=== PATIENT | male | born 1965 | race African-American/Black ===

== ENCOUNTER 2020-12-06 14:16 | Emergency (ER) | payer SELFPAY ==
[~2020-12-06] VITALS: Ht 185.4 cm; Wt 90.0 kg
--- NOTE | 2020-12-06 14:59 | PHYS DOC ---
Past History Past Medical History: No Pertinent History Past Surgical History: Other Alcohol Use: None General Adult EDM: Chief Complaint: SHORTNESS OF BREATH HPI: HPI: Patient is a 55-year-old male who presents with shortness of breath and right- sided flank pain. Patient states that the pain is worse with deep breathing and with movement. Patient states "I have my brother look at my back and he said it looked like it was swollen on the right side". Patient states "I did have a pretty bad cough prior to this pain starting". Denies taking anything prior to arrival for pain. Denies recent fever or injury. Denies any other medical history. Review of Systems: Review of Systems: Constitutional: Denies fever or chills Eyes: Denies change in visual acuity HENT: Denies nasal congestion or sore throat Respiratory: Denies cough, reports shortness of breath Cardiovascular: Denies chest pain or edema GI: Denies abdominal pain, nausea, vomiting, bloody stools or diarrhea : Denies dysuria Musculoskeletal: Denies back pain or joint pain Integument: Denies rash Neurologic: Denies headache, focal weakness or sensory changes Endocrine: Denies polyuria or polydipsia Lymphatic: Denies swollen glands Psychiatric: Denies depression or anxiety Physical Exam: PE: Constitutional: Well developed, well nourished, no acute distress, non-toxic appearance. [] HENT: Normocephalic, atraumatic, bilateral external ears normal, oropharynx moist, no oral exudates, nose normal. [] Eyes: PERRLA, EOMI, conjunctiva normal, no discharge. [] Neck: Normal range of motion, no tenderness, supple, no stridor. [] Cardiovascular:Heart rate regular rhythm, no murmur [] Lungs & Thorax: Diminished breath sounds Abdomen: Bowel sounds normal, soft, no tenderness, no masses, no pulsatile mass es. [] Skin: Warm, dry, no erythema, no rash. [] Back: No tenderness, right-sided CVA tenderness. [] Extremities: No tenderness, no cyanosis, no clubbing, ROM intact, no edema. [] Neurologic: Alert and oriented X 3, normal motor function, normal sensory function, no focal deficits noted. [] Psychologic: Affect normal, judgement normal, mood normal. [] Current Patient Data: Vital Signs: Vital Signs Date Time Temp Pulse Resp B/P (MAP) Pulse Ox O2 Delivery O2 Flow Rate FiO2 12/06/20 14:25 98.3 90 20 137/100 (112) 97 Room Air EKG: EKG: [] EKG shows normal sinus rhythm. Radiology/Procedures: Radiology/Procedures: []INDICATION: Reason: sob / Spl. Instructions: / History: COMPARISON: None. FINDINGS: Single view of chest obtained. Patchy opacity at the right greater than left lung base. Linear opacity right midlung could be secondary to atelectasis or small amount of fluid in the fissure. Tortuous aortic contour. Partial visualization of air-filled prominent loops of bowel in the left upper quadrant of abdomen. IMPRESSION: * Patchy opacity at right greater than left lung base could be atelectasis or infiltrate. * At the partially visualized upper abdomen there is air-filled distended loops of bowel in the left upper quadrant. This can be better evaluated on the patient's already scheduled CT of the abdomen Electronically signed by: Lakhwinder Mercer MD (12/06/2020 3:26 PM) [id number] CT ABDOMEN+PELVIS WO History: Right-sided flank pain. Comparison: None. Technique: Noncontrast CT of the abdomen and pelvis. Exposure: One or more of the following individualized dose reduction techniques were utilized for this examination: 1. Automated exposure control 2. Adjustment of the mA and/or kV according to patient size 3. Use of iterative reconstruction technique. Findings: Bibasilar atelectatic change. Partially visualized right coronary artery calcification. Trace right pleural effusion. No pericardial effusion. Normal appearance of the liver without masses. Partially decompressed gallbladder is unremarkable. No intra or extrahepatic biliary ductal dilatation. The pancreas, spleen, adrenal glands and kidneys are unremarkable. No hydronephrosis. Normal appearance of the ureters. Normal partially distended bladder contour. Small hiatus hernia. Stomach is distended by ingested material. No wall thickening. No evidence of small bowel obstruction. Normal appendix. Moderate pancolonic diverticulosis without evidence for diverticulitis. No intraperitoneal free air or free fluid. Tortuous aorta with aortoiliac atherosclerosis. No aneurysm. Central prostatic calcifications. No abdominopelvic adenopathy. Healed left lateral ninth and 10th rib fractures. Mild degenerative changes of the lumbar spine. Moderate fat-containing periumbilical hernia measures approximately 3.6 cm. Fat-containing right inguinal hernia. Impression: 1. No acute findings in the abdomen and pelvis. No nephrolithiasis or hydronephrosis. 2. Small right pleural effusion and bibasilar linear opacities which likely represent atelectasis, however superimposed infection cannot be excluded. 3. Small hiatal hernia. 4. Colonic diverticulosis without evidence for diverticulitis. 5. Fat containing periumbilical and right inguinal hernias. Electronically signed by: Patric Valles MD (12/06/2020 3:52 PM) [facility] Exam: CT of chest with contrast INDICATION: Shortness of breath TECHNIQUE: Sequential axial images through the chest obtained following the administration 100 mL of Isovue-370 IV contrast. Sagittal and coronal reformatted images were reconstructed from the axial data and reviewed. 3-D reformatted images were reconstructed from the axial data and reviewed. Comparisons: None FINDINGS: Visualized portions of the thyroid are unremarkable. No enlarged mediastinal lymph nodes are identified. Right size is normal. No pericardial effusion. Thoracic aorta has a normal course and caliber. Pulmonary artery is not enlarged. No pulmonary embolus identified within the main, lobar or segmental pulmonary arteries. Strandy opacities noted at the dependent portion lungs likely representing atelectasis. Airways are patent. No consolidation or pneumothorax. No suspicious lung nodules. No pleural effusion or thickening. Visualized upper abdomen is unremarkable. No suspicious osseous lesions or acute fractures. IMPRESSION: No pulmonary embolus identified within the main, lobar or segmental pulmonary arteries. Exposure: One or more of the following in the visualized dose reduction techniques were utilized for this examination: 1. Automated exposure control 2. Adjustment of the MA and/or KV according to patient size 3. Use of iterative of reconstructive technique Electronically signed by: Amrita Butler MD (12/06/2020 4:57 PM) [facility] Heart Score: Risk Factors: Risk Factors: DM, Current or recent (<one month) smoker, HTN, HLP, family history of CAD, obesity. Risk Scores: Score 0 - 3: 2.5% MACE over next 6 weeks - Discharge Home Score 4 - 6: 20.3% MACE over next 6 weeks - Admit for Clinical Observation Score 7 - 10: 72.7% MACE over next 6 weeks - Early Invasive Strategies Course & Med Decision Making: Course & Med Decision Making Pertinent Labs and Imaging studies reviewed. (See chart for details) []Patient is a 55-year-old male who presents with shortness of breath and right- sided flank pain. Patient states that the pain is worse with deep breathing and with movement. Patient states "I have my brother look at my back and he said it looked like it was swollen on the right side". Patient states "I did have a pretty bad cough prior to this pain starting". Denies taking anything prior to arrival for pain. Denies recent fever or injury. Denies any other medical history. Torodal given for pain. Patient reports pain improved. D-dimer is elevated at 2.23. CTA ordered rule out PE. CTA shows No pulmonary embolus identified within the main, lobar or segmental pulmonary arteries. Chest xray shows Patchy opacity at right greater than left lung base could be atelectasis or infiltrate. Will send patient home with antibiotics to treat pneumonia. Patient to take ibuprofen at home for discomfort. Dragon Disclaimer: Dragon Disclaimer: This electronic medical record was generated, in whole or in part, using a voice recognition dictation system. Departure Departure: Impression: Primary Impression: Pneumonia Qualified Codes: J18.9 - Pneumonia, unspecified organism Disposition: 01 DC HOME SELF CARE/HOMELESS Condition: STABLE Referrals: PCP,NO (PCP) Patient Instructions: Pneumonia, Adult Additional Instructions: EMERGENCY DEPARTMENT GENERAL DISCHARGE INSTRUCTIONS Thank you for coming to [facility] (ED) today and trusting us with you care. We trust that you had a positivie experience in our Emergency Department. If you wish to speak to the department management, you may call the director at [phone]. YOUR FOLLOW UP INSTRUCTIONS ARE FOLLOWS: 1. Do you have a private Doctor? If you do not have a private doctor, please ask for a resource list of physicians or clinics that may be able to assist you with follow up care. 2. The Emergency Physician has interpreted your x-rays. The X-Ray specialist will also review them. If there is a change in the findings, you will be notified in 48 hours when at all possible. 3. A lab test or culture has been done, your results will be reviewed and you will be notified if you need a change in treatment. ADDITIONAL INSTRUCTIONS AND INFORMATION: 1. Your care today has been supervised by a physician who is specially trained in emergency care. Many problems require more than one evaluation for a complete diagnosis and treatment. We recommend that you schedule your follow up appointment as recommended to ensure complete treatment of you illness or injury. If you are unable to obtain follow up care and continue to have a problem, or if your condition worsens, we recommend that you return to the ED. 2. We are not able to safely determine your condition over the phone nor are we able to give sound medical advice over the phone. For these safety reasons, if you call for medical advice we will ask you to come to the ED for further evaluation. 3. If you have any questions regarding these discharge instructions please call the ED at [phone]. SAFETY INFORMATION: In the interest of safety, wellness, and injury prevention; we encourage you to wear your sealbelt, if you smoke; quite smoking, and we encourage family to use a protective helmet for bicycling and other sporting events that present an increased risk for head injury. IF YOUR SYMPTOMS WORSEN OR NEW SYMPTOMS DEVELOP, OR YOU HAVE CONCERNS ABOUT YOUR CONDITION; OR IF YOUR CONDITION WORSENS WHILE YOU ARE WAITING FOR YOUR FOLLOW UP APPOINTMENT; EITHER CONTACT YOUR PRIMARY CARE DOCTOR, THE PHYSICIAN WHOSE NAME AND NUMBER YOU WERE GIVEN, OR RETURN TO THE ED IMMEDIATELY. Scripts Azithromycin (AZITHROMYCIN TABLET) 250 Mg Tablet 1 PKG PO UD for pneumonia for 5 Days, #6 TAB 0 Refills 2 the first day followed by 1 for days 2-5 Prov: VY JAUREGUI APRN 12/06/20 VY JAUREGUI APRN Dec 06, 2020 14:59
[2020-12-06] MEDS ORDERED: KETOROLAC 15 MG/ML VIAL. IVP ONE (15:15)
--- NOTE | 2020-12-06 15:28 | RAD ---
INDICATION: Reason: sob / Spl. Instructions: / History: COMPARISON: None. FINDINGS: Single view of chest obtained. Patchy opacity at the right greater than left lung base. Linear opacity right midlung could be second rayray to atelectasis or small amount of fluid in the fissure. Tortuous aortic contour. Partial visualiz ation of air-filled prominent loops of bowel in the left upper quadrant of abdomen. IMPRESSION: * Patchy opacity at right greater than left lung base could be atelectasis or infiltrate. * At the partially visualized upper abdomen there is air-filled distended loops of bowel in the left upper quadrant. This can be better evaluated on the patient's already scheduled CT of the abdomen Electronically signed by: Lakhwinder Mercer MD (12/06/2020 3:26 PM) [id number]
[2020-12-06 15:36] LABS: BASO % 0 % (0-3); EOS # 0.1 x10^3/uL (0.0-0.7); EOS % 1 % (0-3); HEMATOCRIT 44.5 % (39.0-53.0); HEMOGLOBIN 14.4 g/dL (13.0-17.5); LYMPH # 1.2 x10^3/uL (1.0-4.8); LYMPH % 12 % (24-48); MEAN CORPUSCULAR HEMOGLOBIN 28 pg (25-35); MEAN CORPUSCULAR HGB CONC 32 g/dL (31-37); MEAN CORPUSCULAR VOLUME 86 fL (79-100); MONO # 0.6 x10^3/uL (0.0-1.1); MONO % 6 % (0-9); NEUT # 7.8 x10^3uL (1.8-7.7); NEUT % 80 % (31-73); PLATELET COUNT 311 x10^3/uL (140-400); RED BLOOD COUNT 5.15 x10^6/uL (4.30-5.70); RED CELL DISTRIBUTION WIDTH 15.3 % (11.5-14.5); WHITE BLOOD COUNT 9.8 x10^3/uL (4.0-11.0)
[2020-12-06 15:43] LABS: CALCIUM 8.9 mg/dL (8.5-10.1); GFR 93.9; POTASSIUM 3.4 mmol/L (3.5-5.1)
[2020-12-06 15:49] LABS: ALBUMIN 3.2 g/dL (3.4-5.0); ALBUMIN/GLOBULIN RATIO 0.7 (1.0-1.7); TOTAL BILIRUBIN 0.5 mg/dL (0.2-1.0); TOTAL PROTEIN 7.7 g/dL (6.4-8.2)
--- NOTE | 2020-12-06 15:54 | RAD ---
CT ABDOMEN+PELVIS WO History: Right-sided flank pain. Comparison: None. Technique: Noncontrast CT of the abdomen and pelvis. Exposure: One or more of the following individualized dose reduction techniques were utilized for thi s examination: 1. Automated exposure control 2. Adjustment of the mA and/or kV according to patient size 3. Use of iterative reconstruction technique. Findings: Bibasilar atelectatic change. Partially visualized right coronary artery calcification. Trace right p leural effusion. No pericardial effusion. Normal appearance of the liver without masses. Partially decompressed gallbladder is unremarkable. No intra or extrahepatic biliary ductal dilatation. The pancreas, spleen, adrenal glands and kidneys ar e unremarkable. No hydronephrosis. Normal appearance of the ureters. Normal partially distended bladd er contour. Small hiatus hernia. Stomach is distended by ingested material. No wall thickening. No evidence of sm all bowel obstruction. Normal appendix. Moderate pancolonic diverticulosis without evidence for diver ticulitis. No intraperitoneal free air or free fluid. Tortuous aorta with aortoiliac atherosclerosis. No aneurys m. Central prostatic calcifications. No abdominopelvic adenopathy. Healed left lateral ninth and 10th rib fractures. Mild degenerative changes of the lumbar spine. Mode rate fat-containing periumbilical hernia measures approximately 3.6 cm. Fat-containing right inguinal hernia. Impression: 1. No acute findings in the abdomen and pelvis. No nephrolithiasis or hydronephrosis. 2. Small right pleural effusion and bibasilar linear opacities which likely represent atelectasis, ho wever superimposed infection cannot be excluded. 3. Small hiatal hernia. 4. Colonic diverticulosis without evidence for diverticulitis. 5. Fat containing periumbilical and right inguinal hernias. Electronically signed by: Patric Valles MD (12/06/2020 3:52 PM) [facility]
[2020-12-06] MEDS ORDERED: KETOROLAC 15 MG/ML VIAL. IM ONE (16:00)
[2020-12-06] MEDS ORDERED: CONTRAST GIVEN. MC PRN (16:30)
[2020-12-06] MEDS ORDERED: IOHEXOL 350 MG/ML 100 ML VIAL. IV ONE (16:30)
--- NOTE | 2020-12-06 16:59 | RAD ---
Exam: CT of chest with contrast INDICATION: Shortness of breath TECHNIQUE: Sequential axial images through the chest obtained following the administration 100 mL of Isovue-370 IV contrast. Sagittal and coronal reformatted images were reconstructed from the axial mickey a and reviewed. 3-D reformatted images were reconstructed from the axial data and reviewed. Comparisons: None FINDINGS: Visualized portions of the thyroid are unremarkable. No enlarged mediastinal lymph nodes are identifi ed. Right size is normal. No pericardial effusion. Thoracic aorta has a normal course and caliber. Pulmon rayray artery is not enlarged. No pulmonary embolus identified within the main, lobar or segmental pulmo nary arteries. Strandy opacities noted at the dependent portion lungs likely representing atelectasis. Airways are p atent. No consolidation or pneumothorax. No suspicious lung nodules. No pleural effusion or thickening. Visualized upper abdomen is unremarkable. No suspicious osseous lesions or acute fractures. IMPRESSION: No pulmonary embolus identified within the main, lobar or segmental pulmonary arteries. Exposure: One or more of the following in the visualized dose reduction techniques were utilized for this examination: 1. Automated exposure control 2. Adjustment of the MA and/or KV according to patient size 3. Use of iterative of reconstructive technique Electronically signed by: Amrita Butler MD (12/06/2020 4:57 PM) [facility]
--- NOTE | 2020-12-06 17:36 | EKG ---
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
[2020-12-06] MEDS ORDERED: AZIT250T6 PO (17:47)
[2020-12-06 17:50] VITALS: BP 152/104
== END 2020-12-06 18:00 | disposition home or self-care (01) ==
LOC: ER 14:16
DX: J18.9 Pneumonia, unspecified organism (principal); R10.9 Unspecified abdominal pain
CPT/HCPCS: 36415; 71045; 71275; 74176; 80053; 85025; 85379; 93005; 96372; 99285; J1885; Q9967

== ENCOUNTER 2021-02-04 09:06 | Emergency (ER) | payer SELFPAY ==
[~2021-02-04] VITALS: Ht 185.4 cm; Wt 100.0 kg
[~2021-02-04 09:06] MED LIST: AZIT250T6 PO
[2021-02-04 09:15] VITALS: BP 127/86
--- NOTE | 2021-02-04 09:57 | PHYS DOC ---
Past History Past Medical History: No Pertinent History Past Surgical History: Other Alcohol Use: Occasionally General Adult EDM: Chief Complaint: ABDOMINAL PAIN HPI: HPI: Patient is a 56-year-old male coming in for epigastric abdominal pain and a "popping out" of his abdomen. Patient states is worse when he is coughing or bearing down. Patient states he is able to push the bubble back in. Denies any recent injuries or heavy lifting. No vomiting or diarrhea, patient has had this for about 5 weeks. Review of Systems: Review of Systems: All other systems within normal limits except for as noted in the HPI Allergies: Allergies: Allergies Coded Allergies Type Severity Reaction Last Updated Verified No Known Drug Allergies 02/04/21 No Physical Exam: PE: Constitutional: Well developed, well nourished, no acute distress, non-toxic appearance. [] HENT: Normocephalic, atraumatic, bilateral external ears normal, nose normal. [] Eyes: PERRLA, conjunctiva normal, no discharge. [] Neck: No rigidity, supple, no stridor. [] Cardiovascular: Regular rate and rhythm, brisk cap refill [] Lungs & Thorax: Non labored symmetric respirations, no tachypnea or respiratory distress [] Abdomen: Soft, nondistended, moderate epigastric area ventral hernia, possible bowels, reducible Skin: Warm, dry, no erythema, no rash. [] Back: Unremarkable Extremities: No deformities, range of motion grossly intact, no lower extremity edema [] Neurologic: Alert and oriented X 3, no focal deficits noted. [] Psychologic: Affect normal, judgement normal, mood normal. [] Current Patient Data: Vital Signs: Vital Signs Date Time Temp Pulse Resp B/P (MAP) Pulse Ox O2 Delivery O2 Flow Rate FiO2 02/04/21 09:15 97.6 83 18 127/86 (100) 99 EKG: EKG: [] Radiology/Procedures: Radiology/Procedures: [] Heart Score: C/O Chest Pain: No Risk Factors: Risk Factors: DM, Current or recent (<one month) smoker, HTN, HLP, family history of CAD, obesity. Risk Scores: Score 0 - 3: 2.5% MACE over next 6 weeks - Discharge Home Score 4 - 6: 20.3% MACE over next 6 weeks - Admit for Clinical Observation Score 7 - 10: 72.7% MACE over next 6 weeks - Early Invasive Strategies Course & Med Decision Making: Course & Med Decision Making Exam consistent with reducible hernia, discussed follow-up and return precautio ns. No indications or other complaints concerning for pathology do not require imaging. Patient states he is concerned about blood clots, reassured patient that he is not at high risk for blood clots from his hernia Dragon Disclaimer: Draghemant Disclaimer: This electronic medical record was generated, in whole or in part, using a voice recognition dictation system. Departure Departure: Impression: Primary Impression: Ventral hernia Disposition: HOME / SELF CARE / HOMELESS Condition: STABLE Referrals: PCP,NO (PCP) Patient Instructions: Hernia Additional Instructions: [facility] for primary care follow-up Address: [address] [place] [id number] BINDU SAM MD Feb 04, 2021 09:57
== END 2021-02-04 10:20 | disposition home or self-care (01) ==
LOC: ER 09:06
DX: K43.9 Ventral hernia without obstruction or gangrene (principal)
CPT/HCPCS: 99281